=== PATIENT | male | born 1995 | race Caucasian/White ===

== ENCOUNTER 2017-08-04 12:40 | Emergency (ER) | payer MEDICAID, OTHER ==
[~2017-08-04] VITALS: Ht 180.3 cm; Wt 75.0 kg
[2017-08-04 12:53] VITALS: BP 156/78; PULSE 87; RESP 16; TEMP 98.2; O2SAT 100
[2017-08-04] MEDS ORDERED: BACT800T5 PO (13:20)
[2017-08-04] MEDS ORDERED: FLUT1SPR5 EACH NARE (13:20)
--- NOTE | 2017-08-04 13:20 | PD ---
HPI Chief Complaint: Cold / Flu Symptoms Time Seen by Provider: 13:11 Travel History International Travel<30 days: No Contact w/Intl Traveler<30days: No Traveled to known affect area: No History of Present Illness HPI 21-year-old male presents emergency department with one-week history of upper respiratory symptoms including sinus congestion, headache, sore throat , postnasal drip, cough, and ear pain. Patient denies significant wheezing or shortness of breath. Patient does smoke cigarettes. Patient denies nausea, vomiting, or significant fever although he has had chills in the past several days. Patient states history of sinus trouble in the past. Patient is allergic to penicillin. PFSH Social History Alcohol Use: Yes Tobacco Use: Yes Substance Use: No Allergies-Medications (Allergen,Severity, Reaction): Coded Allergies: Penicillins (Verified Allergy, Intermediate, 08/04/17) Reported Meds & Prescriptions Reported Meds & Active Scripts Active Flonase Nasal [place] (Fluticasone Nasal [place]) 50 Mcg/Act [place] 100 Mcg EACH NARE BID Bactrim DS (Sulfamethoxazole-Trimethoprim) 800-160 Mg Tab 1 Tab PO BID Review of Systems Except as stated in HPI: all other systems reviewed are Neg General / Constitutional: Positive: Chills, No: Fever Eyes: No: Visual changes HENT: Positive: Headaches, Sore Throat, Rhinitis, Rhinorrhea, Congestion, Earache, No: Vertigo, Lightheadedness, Nosebleed, Neck Stiffness, Neck Pain, Gingival Bleeding, Dental Difficulties, Ear Discharge Cardiovascular: No: Chest Pain or Discomfort Respiratory: Positive: Cough, No: Shortness of Breath, Wheezing Gastrointestinal: No: Nausea, Vomiting, Diarrhea, Abdominal Pain Genitourinary: No: Dysuria Musculoskeletal: No: Pain Skin: No Rash Neurologic: No: Weakness Psychiatric: No: Depression Endocrine: No: Polydipsia Hematologic/Lymphatic: No: Easy Bruising Physical Exam Narrative GENERAL: Patient appears in no obvious distress SKIN: Warm and dry. Normal color. Normal turgor. No rash. HEAD: Atraumatic. Normocephalic. Patient has moderate sinus tenderness in both frontal and maxillary sinuses EYES: Pupils equal and round. No scleral icterus. No injection or drainage. ENT: No nasal bleeding or discharge. Mucous membranes pink and moist. TMs are somewhat dull bilaterally without significant injection. Posterior pharynx is mildly injected with cobblestoning and postnasal drip noted in the posterior pharynx. Patient has no significant swelling or tonsillitis. Airway is patent. NECK: Trachea midline. Supple and nontender. CARDIOVASCULAR: Regular rate and rhythm. RESPIRATORY: No accessory muscle use. No wheezes or rhonchi to auscultation. Breath sounds equal bilaterally. GASTROINTESTINAL: Abdomen soft, non-tender, nondistended. Hepatic and splenic margins not palpable. MUSCULOSKELETAL: Extremities without clubbing, cyanosis, or edema. No obvious deformities. NEUROLOGICAL: Awake and alert. No obvious cranial nerve deficits. Motor grossly within normal limits. Five out of 5 muscle strength in the arms and legs. Normal speech. PSYCHIATRIC: Appropriate mood and affect; insight and judgment normal. Data Data Last Documented VS Vital Signs Date Time Temp Pulse Resp B/P (MAP) Pulse Ox O2 Delivery O2 Flow Rate FiO2 08/04/17 12:53 98.2 87 16 156/78 (104) 100 MDM Medical Decision Making Medical Screen Exam Complete: Yes Emergency Medical Condition: Yes Differential Diagnosis Upper respiratory infection. Postnasal drip. Sinusitis. Narrative Course Patient is felt to have sinusitis. Patient was treated with Bactrim DS twice daily 10 days. Patient also given Flonase nasal spray 2 sprays each nostril daily. Patient can take [id number] ibuprofen and Tylenol as needed. Patient to follow-up if symptoms do not improve or worsen as needed. Patient is encouraged to quit smoking. Diagnosis Primary Impression: Acute maxillary sinusitis, unspecified Qualified Codes: J01.01 - Acute recurrent maxillary sinusitis Patient Instructions: General Instructions, Rhinosinusitis (GEN) Additional Instructions: Patient is felt to have sinusitis. Patient was treated with Bactrim DS twice daily 10 days. Patient also given Flonase nasal spray 2 sprays each nostril daily. Patient can take [id number] ibuprofen and Tylenol as needed. Patient to follow-up if symptoms do not improve or worsen as needed. Patient is encouraged to quit smoking. Med/Other Pt SpecificInfo: Prescription(s) given Scripts Fluticasone Nasal [place] (Flonase Nasal [place]) 50 Mcg/Act [place] 100 MCG EACH NARE BID for Allergies, #1 BOTTLE 0 Refills Prov: Griselda Nielsen DO 08/04/17 Sulfamethoxazole-Trimethoprim (Bactrim DS) 800-160 Mg Tab 1 TAB PO BID for Infection, #20 TAB 0 Refills Prov: Griselda Nielsen DO 08/04/17 Disposition: 01 DISCHARGE HOME Condition: Stable Gopi Whiteside Aug 04, 2017 13:19
[2017-08-04 13:40] VITALS: BP 142/80
== END 2017-08-04 13:41 | disposition home or self-care (01) ==
LOC: NEPD 12:40
DX: J01.00 Acute maxillary sinusitis, unspecified (principal); Z72.0 Tobacco use; Z88.0 Allergy status to penicillin
CPT/HCPCS: 99283

== ENCOUNTER 2017-08-20 18:00 | Emergency (ER) | payer MEDICAID ==
[~2017-08-20 18:00] MED LIST: BACT800T5 PO; FLUT1SPR5 EACH NARE
[2017-08-20 18:29] VITALS: BP 131/66; PULSE 68; RESP 18; TEMP 98; O2SAT 98
[2017-08-20 20:31] LABS: AUTOMATED NEUTROPHIL # 6.3 TH/MM3 (1.8-7.7); BASOPHIL # 0.1 TH/MM3 (0-0.2); BASOPHIL % 0.8 % (0.0-2.0); EOSINOPHIL # 0.4 TH/MM3 (0-0.4); EOSINOPHIL % 3.9 % (0.0-4.0); HEMATOCRIT 42.2 % (39.0-51.0); HEMOGLOBIN 14.5 GM/DL (13.0-17.0); LYMPH % 27.1 % (9.0-44.0); LYMPHOCYTE # 2.7 TH/MM3 (1.0-4.8); MEAN CELL VOLUME 88.1 FL (80.0-100.0); MEAN CORPUSCULAR HEMOGLOBIN 30.4 PG (27.0-34.0); MEAN CORPUSCULAR HGB CONC 34.5 % (32.0-36.0); MEAN PLATELET VOLUME 8.4 FL (7.0-11.0); MONO % 5.8 % (0.0-8.0); MONOCYTE # 0.6 TH/MM3 (0-0.9); NEUT % 62.4 % (16.0-70.0); PLATELET COUNT 207 TH/MM3 (150-450); RED BLOOD COUNT 4.79 MIL/MM3 (4.50-5.90); RED CELL DISTRIBUTION WIDTH 12.3 % (11.6-17.2)
[2017-08-20 20:46] LABS: ALBUMIN 3.9 GM/DL (3.4-5.0); AST (GOT) 14 U/L (15-39); BICARBONATE 28.8 MEQ/L (21.0-32.0); BLOOD UREA NITROGEN 11 MG/DL (7-18); CALCIUM 9.1 MG/DL (8.5-10.1); CHLORIDE 103 MEQ/L (98-107); CREATININE 1.01 MG/DL (0.60-1.30); GLOMERULAR FILTRATION RATE 94 ML/MIN (>89); GLUCOSE,RANDOM 114 MG/DL (74-106); SODIUM (NA) 140 MEQ/L (136-145)
[2017-08-20 20:47] LABS: ALT (GPT) 22 U/L (9-52)
[2017-08-20 20:50] LABS: ALKALINE PHOSPHATASE 77 U/L (45-117); TOTAL BILIRUBIN ADULT 0.3 MG/DL (0.2-1.0); TOTAL PROTEIN 6.7 GM/DL (6.4-8.2)
--- NOTE | 2017-08-20 22:06 | PD ---
HPI Chief Complaint: GI Complaint Time Seen by Provider: 18:29 Travel History International Travel<30 days: No Contact w/Intl Traveler<30days: No Traveled to known affect area: No History of Present Illness HPI 21-year-old male presents emergency department for evaluation of possible dehydration. Patient states he is treated for sinusitis last week. He took his antibiotics. He states over the last 3 days he has had nausea, vomiting, diarrhea. He has been with pretty significant epigastric pain. Denies any fever chills. No other symptoms to report. PFSH Past Medical History Medical History: Denies Significant Hx Social History Alcohol Use: Yes Tobacco Use: Yes Substance Use: No Allergies-Medications (Allergen,Severity, Reaction): Coded Allergies: Penicillins (Verified Allergy, Intermediate, 08/04/17) Reported Meds & Prescriptions Reported Meds & Active Scripts Active Flonase Nasal [place] (Fluticasone Nasal [place]) 50 Mcg/Act [place] 100 Mcg EACH NARE BID Bactrim DS (Sulfamethoxazole-Trimethoprim) 800-160 Mg Tab 1 Tab PO BID Review of Systems Except as stated in HPI: all other systems reviewed are Neg Physical Exam Narrative Patient appears nontoxic. Is ambulatory without difficulty. He has even respirations. Regular heart rate. Moves all extremities and speaks to me clearly. Data Data Last Documented VS Vital Signs Date Time Temp Pulse Resp B/P (MAP) Pulse Ox O2 Delivery O2 Flow Rate FiO2 08/20/17 18:29 98.0 68 18 131/66 (87) 98 Orders Orders Complete Blood Count With Diff (08/20/17 18:31) Comprehensive Metabolic Panel (08/20/17 18:31) Lipase (08/20/17 18:31) Influenzae A/B Antigen (08/20/17 18:31) Labs Laboratory Tests Test 08/20/17 19:55 White Blood Count 10.0 TH/MM3 Red Blood Count 4.79 MIL/MM3 Hemoglobin 14.5 GM/DL Hematocrit 42.2 % Mean Corpuscular Volume 88.1 FL Mean Corpuscular Hemoglobin 30.4 PG Mean Corpuscular Hemoglobin Concent 34.5 % Red Cell Distribution Width 12.3 % Platelet Count 207 TH/MM3 Mean Platelet Volume 8.4 FL Neutrophils (%) (Auto) 62.4 % Lymphocytes (%) (Auto) 27.1 % Monocytes (%) (Auto) 5.8 % Eosinophils (%) (Auto) 3.9 % Basophils (%) (Auto) 0.8 % Neutrophils # (Auto) 6.3 TH/MM3 Lymphocytes # (Auto) 2.7 TH/MM3 Monocytes # (Auto) 0.6 TH/MM3 Eosinophils # (Auto) 0.4 TH/MM3 Basophils # (Auto) 0.1 TH/MM3 CBC Comment DIFF FINAL Differential Comment Blood Urea Nitrogen 11 MG/DL Creatinine 1.01 MG/DL Random Glucose 114 MG/DL Total Protein 6.7 GM/DL Albumin 3.9 GM/DL Calcium Level 9.1 MG/DL Alkaline Phosphatase 77 U/L Aspartate Amino Transf (AST/SGOT) 14 U/L Alanine Aminotransferase (ALT/SGPT) 22 U/L Total Bilirubin 0.3 MG/DL Sodium Level 140 MEQ/L Potassium Level 3.5 MEQ/L Chloride Level 103 MEQ/L Carbon Dioxide Level 28.8 MEQ/L Anion Gap 8 MEQ/L Estimat Glomerular Filtration Rate 94 ML/MIN Lipase 1073 U/L MDM Medical Decision Making Medical Screen Exam Complete: Yes Emergency Medical Condition: Yes Medical Record Reviewed: Yes Differential Diagnosis Gastritis versus cholecystitis versus pancreatitis versus influenza Narrative Course 21-year-old male presents emergency department for evaluation of nausea vomiting 3 days. Patient appears nontoxic. Workup is initiated in triage. Prior to bed placement, patient chooses to leave. I have told him that his lipase is elevated greater than 1000 and this is pancreatitis and likely he would be admitted for this however he still chooses to leave with full understanding this is AGAINST MEDICAL ADVICE. AMA: The risks of leaving against medical advice without further evaluation treatment were discussed with the patient. These risks include cardiac dysfunction, cardiac dysrhythmia, possible heart attack, possible stroke or . The patient indicated understanding of these risks and appeared to have the capacity to make this decision. Diagnosis Primary Impression: Pancreatitis Disposition: 07 AGAINST MEDICAL ADVICE Condition: Stable Sarika Vyas JARED Aug 20, 2017 22:06
== END 2017-08-20 21:15 | disposition left against medical advice (07) ==
LOC: NED 18:00
DX: K85.90 Acute pancreatitis without necrosis or infection, unspecified (principal); Z72.0 Tobacco use; Z88.0 Allergy status to penicillin; Z79.899 Other long term (current) drug therapy
CPT/HCPCS: 80053; 83690; 85025; 87804; 99283

== ENCOUNTER 2017-08-21 08:26 | Emergency (ER) | payer MEDICAID ==
[2017-08-21 08:31] VITALS: BP 149/83; PULSE 65; RESP 20; TEMP 98.5; O2SAT 99
--- NOTE | 2017-08-21 10:26 | PD ---
HPI Chief Complaint: Abdominal Pain Time Seen by Provider: 10:21 Travel History International Travel<30 days: No Contact w/Intl Traveler<30days: No Traveled to known affect area: No History of Present Illness HPI 21-year-old male previously seen yesterday, and left AMA, with history of abdominal pain radiating to the back. Patient was felt to have pancreatitis due to his lipase being 1073. Patient did not have significant white count yesterday. Patient states he has had gallbladder trouble in the past but has not had it taken out. He states someone told him he was supposed to have it out but he has not had it out yet. He denies specific history of gallstones. Patient states he did drink somewhat heavily last week, but denies being sick at that time. Patient states his current symptoms started 2 days ago , and is unable to eat secondary to nausea and vomiting. He states he feels dehydrated with darkening urine since yesterday. He has had decreased urine output. He does have right upper quadrant discomfort and nausea currently. He denies fever or chills. Pain is 6 out of 10. Patient is allergic to penicillin [facility] Social History Alcohol Use: Yes Tobacco Use: Yes Substance Use: No Allergies-Medications (Allergen,Severity, Reaction): Coded Allergies: Penicillins (Verified Allergy, Intermediate, 08/21/17) Reported Meds & Prescriptions Reported Meds & Active Scripts Active Flonase Nasal [place] (Fluticasone Nasal [place]) 50 Mcg/Act [place] 100 Mcg EACH NARE BID Bactrim DS (Sulfamethoxazole-Trimethoprim) 800-160 Mg Tab 1 Tab PO BID Review of Systems Except as stated in HPI: all other systems reviewed are Neg General / Constitutional: No: Fever, Chills Eyes: No: Visual changes HENT: No: Headaches Cardiovascular: No: Chest Pain or Discomfort Respiratory: No: Shortness of Breath Gastrointestinal: Positive: Nausea, Vomiting, Abdominal Pain, Loss of Appetite , No: Diarrhea, Hematemesis, Hematochezia, Constipation, Changes in Bowel Habits , Indigestion, Dysphagia Genitourinary: No: Dysuria Musculoskeletal: No: Pain Skin: No Rash Neurologic: No: Weakness Psychiatric: No: Depression Endocrine: No: Polydipsia Hematologic/Lymphatic: No: Easy Bruising Physical Exam Narrative GENERAL: Patient appears ill but not septic SKIN: Warm and dry. Decreased pallor. Decreased turgor. Mild diaphoresis noted. HEAD: Atraumatic. Normocephalic. EYES: Pupils equal and round. No scleral icterus. No injection or drainage. ENT: No nasal bleeding or discharge. Mucous membranes pink and somewhat dry. Pharynx is clear otherwise, airway is patent. NECK: Trachea midline. Supple and nontender.. CARDIOVASCULAR: Regular rate and rhythm. RESPIRATORY: No accessory muscle use. Clear to auscultation. Breath sounds equal bilaterally. GASTROINTESTINAL: Abdomen soft, moderate right upper quadrant tenderness suggestive of McBurney's point, nondistended. Mild to moderate bilateral CVA tenderness with percussion. Hepatic and splenic margins not palpable. MUSCULOSKELETAL: Extremities without clubbing, cyanosis, or edema. No obvious deformities. NEUROLOGICAL: Awake and alert. No obvious cranial nerve deficits. Motor grossly within normal limits. Five out of 5 muscle strength in the arms and legs. Normal speech. PSYCHIATRIC: Appropriate mood and affect; insight and judgment normal. Data Data Last Documented VS Vital Signs Date Time Temp Pulse Resp B/P (MAP) Pulse Ox O2 Delivery O2 Flow Rate FiO2 08/21/17 11:08 100 Room Air 08/21/17 08:31 98.5 65 20 149/83 (105) Orders Orders Complete Blood Count With Diff (08/21/17 10:31) Comprehensive Metabolic Panel (08/21/17 10:31) Lipase (08/21/17 10:31) Lactic Acid (08/21/17 10:31) Prothrombin Time / Inr (Pt) (08/21/17 10:31) Act Partial Throm Time (Ptt) (08/21/17 10:31) Urinalysis - C+S If Indicated (08/21/17 10:31) Us Abdomen Gallbladder (08/21/17 ) Iv Access Insert/Monitor (08/21/17 10:31) Ecg Monitoring (08/21/17 10:31) Oximetry (08/21/17 10:31) NPO (08/21/17 10:31) Ondansetron Inj (Zofran Inj) (08/21/17 10:45) Sodium Chlor 0.9% 1000 Ml Inj (Ns 1000 M (08/21/17 10:31) Sodium Chloride 0.9% Flush (Ns Flush) (08/21/17 10:45) Ketorolac Inj (Toradol Inj) (08/21/17 10:45) Labs Laboratory Tests Test 08/21/17 11:00 08/21/17 11:10 08/21/17 13:00 White Blood Count 7.1 TH/MM3 Red Blood Count 4.89 MIL/MM3 Hemoglobin 15.1 GM/DL Hematocrit 42.8 % Mean Corpuscular Volume 87.5 FL Mean Corpuscular Hemoglobin 30.9 PG Mean Corpuscular Hemoglobin Concent 35.3 % Red Cell Distribution Width 12.2 % Platelet Count 195 TH/MM3 Mean Platelet Volume 8.2 FL Neutrophils (%) (Auto) 63.4 % Lymphocytes (%) (Auto) 26.9 % Monocytes (%) (Auto) 5.2 % Eosinophils (%) (Auto) 3.7 % Basophils (%) (Auto) 0.8 % Neutrophils # (Auto) 4.5 TH/MM3 Lymphocytes # (Auto) 1.9 TH/MM3 Monocytes # (Auto) 0.4 TH/MM3 Eosinophils # (Auto) 0.3 TH/MM3 Basophils # (Auto) 0.1 TH/MM3 CBC Comment DIFF FINAL Differential Comment Prothrombin Time 10.4 SEC Prothromb Time International Ratio 1.0 RATIO Activated Partial Thromboplast Time 27.1 SEC Blood Urea Nitrogen 10 MG/DL Creatinine 0.90 MG/DL Random Glucose 97 MG/DL Total Protein 6.9 GM/DL Albumin 4.0 GM/DL Calcium Level 9.1 MG/DL Alkaline Phosphatase 77 U/L Aspartate Amino Transf (AST/SGOT) 13 U/L Alanine Aminotransferase (ALT/SGPT) 21 U/L Total Bilirubin 0.5 MG/DL Sodium Level 141 MEQ/L Potassium Level 3.9 MEQ/L Chloride Level 107 MEQ/L Carbon Dioxide Level 27.3 MEQ/L Anion Gap 7 MEQ/L Estimat Glomerular Filtration Rate 108 ML/MIN Lipase 83 U/L Lactic Acid Level 0.7 mmol/L Urine Color YELLOW Urine Turbidity CLEAR Urine pH 8.0 Urine Specific [place] 1.020 Urine Protein TRACE mg/dL Urine Glucose (UA) NEG mg/dL Urine Ketones NEG mg/dL Urine Occult Blood NEG Urine Nitrite NEG Urine Bilirubin NEG Urine Urobilinogen LESS THAN 2.0 MG/DL Urine Leukocyte Esterase NEG Urine RBC 1 /hpf Urine WBC 2 /hpf Urine Bacteria RARE /hpf Urine Mucus FEW /lpf Microscopic Urinalysis Comment CULT NOT INDICATED MDM Medical Decision Making Medical Screen Exam Complete: Yes Emergency Medical Condition: Yes Differential Diagnosis Right upper quadrant pain. Gallbladder disease. Pancreatitis. Nausea and vomiting. Dehydration. Narrative Course Patient appears medically stable at time of exam. IV access is obtained. Labs ordered including CBC, CMP, lipase, lactic acid, and urinalysis Abdominal ultrasound to evaluate the gallbladder is ordered. Patient is given normal saline bolus 1 L 2 Patient is given Zofran 4 mg IV as well as 30 mg Toradol IV. CBC showed no significant findings. Coagulation studies are normal. Chemistries are unremarkable, with a lipase of 83, lactic acid 0.7, normal BUN and creatinine. Urinalysis unremarkable. Ultrasound showed no acute process per radiologist. Patient is stable for discharge. Patient is advised to avoid significant alcohol use. He can take ibuprofen and Tylenol as needed. He is to rest and push fluids today. Note for school was given. Patient can return if symptoms worsen as needed. Diagnosis Primary Impression: History of acute pancreatitis Referrals: Primary Care Physician Patient Instructions: Biliary Colic (ED), General Instructions Departure Forms: School Release Return to School Date: Aug 22, 2017 Additional Instructions: Patient is stable for discharge. Patient is advised to avoid significant alcohol use. He can take ibuprofen and Tylenol as needed. He is to rest and push fluids today. Note for school was given. Patient can return if symptoms worsen as needed. Med/Other Pt SpecificInfo: No Meds Exist/No RX given Disposition: 01 DISCHARGE HOME Condition: Stable Gopi Whiteside Aug 21, 2017 10:26
[2017-08-21] MEDS ORDERED: KETOROLAC TROMETHAMINE 30 MG/ML (IVP) VIAL IVP ONE (10:45)
[2017-08-21] MEDS ORDERED: SODIUM CHLORIDE 0.9% FLUSH 10 ML FLUSH IV FLUSH PRN (10:45)
[2017-08-21] MEDS ORDERED: ONDANSETRON HCL 4 MG/2 ML VIAL IVP ONE (10:45)
[2017-08-21 11:08] VITALS: O2SAT 100
--- NOTE | 2017-08-21 11:22 | RADRPT ---
EXAM DATE/TIME: 08/21/2017 10:45 [facility] COMPARISON: No previous studies available for comparison. INDICATIONS : Right upper quadrant pain. MEDICAL HISTORY : Right upper quadrant pain. Substance use. SURGICAL HISTORY : Right shoulder rotator cuff. ENCOUNTER: Initial ACUITY: 3 days PAIN SCORE: 5/10 LOCATION: Right upper quadrant MEASUREMENTS: LIVER: 15.6 cm length COMMON DUCT: 4 mm RIGHT KIDNEY: 11.7 x 5.0 x 4.8 cm FINDINGS: LIVER: Normal echotexture without focal lesion or ductal dilatation. COMMON DUCT: No intraluminal mass or stone visualized. GALLBLADDER: Contains no stones, demonstrates no wall thickening or pericholecystic fluid. PANCREAS: The visualized portions are within normal limits. RIGHT KIDNEY: No evidence of hydronephrosis, stone, or mass. CONCLUSION: Normal examination for a patient of this age. Ezio Christensen MD on August 21, 2017 at 11:19 Board Certified Radiologist. This report was verified electronically.
[2017-08-21 11:31] LABS: AUTOMATED NEUTROPHIL # 4.5 TH/MM3 (1.8-7.7); BASOPHIL # 0.1 TH/MM3 (0-0.2); BASOPHIL % 0.8 % (0.0-2.0); EOSINOPHIL # 0.3 TH/MM3 (0-0.4); EOSINOPHIL % 3.7 % (0.0-4.0); HEMATOCRIT 42.8 % (39.0-51.0); HEMOGLOBIN 15.1 GM/DL (13.0-17.0); LYMPH % 26.9 % (9.0-44.0); LYMPHOCYTE # 1.9 TH/MM3 (1.0-4.8); MEAN CELL VOLUME 87.5 FL (80.0-100.0); MEAN CORPUSCULAR HEMOGLOBIN 30.9 PG (27.0-34.0); MEAN CORPUSCULAR HGB CONC 35.3 % (32.0-36.0); MEAN PLATELET VOLUME 8.2 FL (7.0-11.0); MONO % 5.2 % (0.0-8.0); MONOCYTE # 0.4 TH/MM3 (0-0.9); NEUT % 63.4 % (16.0-70.0); PLATELET COUNT 195 TH/MM3 (150-450); RED BLOOD COUNT 4.89 MIL/MM3 (4.50-5.90); RED CELL DISTRIBUTION WIDTH 12.2 % (11.6-17.2); WHITE BLOOD COUNT 7.1 TH/MM3 (4.0-11.0)
[2017-08-21] MEDS: SODIUM CHLOR 0.9% 1000 ML INJ 1,000 ML IV SCH ×2 (11:31→12:11)
[2017-08-21 11:41] LABS: PROTHROMBIN TIME - PATIENT 10.4 SEC (9.8-11.6)
[2017-08-21 11:47] LABS: ALT (GPT) 21 U/L (9-52); AST (GOT) 13 U/L (15-39); BICARBONATE 27.3 MEQ/L (21.0-32.0); BLOOD UREA NITROGEN 10 MG/DL (7-18); CALCIUM 9.1 MG/DL (8.5-10.1); CHLORIDE 107 MEQ/L (98-107); GLOMERULAR FILTRATION RATE 108 ML/MIN (>89); GLUCOSE,RANDOM 97 MG/DL (74-106); SODIUM (NA) 141 MEQ/L (136-145)
[2017-08-21 11:50] LABS: ALKALINE PHOSPHATASE 77 U/L (45-117); TOTAL BILIRUBIN ADULT 0.5 MG/DL (0.2-1.0); TOTAL PROTEIN 6.9 GM/DL (6.4-8.2)
[2017-08-21 13:35] LABS: BACTERIA, URINE RARE /hpf; BILIRUBIN, URINE NEG (NEG); BLOOD, URINE NEG (NEG); GLUCOSE,URINE NEG (NEG); KETONE, URINE NEG (NEG); MUCUS URINE FEW /lpf (OCC); NITRITE,URINE NEG (NEG); URINE COLOR YELLOW (YELLW/STRAW); URINE LEUKOCYTE ESTERASE NEG (NEG)
[2017-08-21 14:16] VITALS: BP 137/72
== END 2017-08-21 14:18 | disposition home or self-care (01) ==
LOC: NEPD 08:26
DX: K85.90 Acute pancreatitis without necrosis or infection, unspecified (principal); Z72.0 Tobacco use
CPT/HCPCS: 76705; 80053; 81001; 83605; 83690; 85025; 85610; 85730; 96361; 96374; 96375; 99284; J1885; J2405; J7030